=== PATIENT | male | born 1950 | race Caucasian/White ===

== ENCOUNTER 2023-08-17 07:51 | Outpatient (CLI) | payer MEDICARE | END 2023-08-17 07:52 | disposition home or self-care (01) | LOC: LAB.S 07:51 | PROVIDERS: ATTEND Family Medicine | DX: Z95.4 Presence of other heart-valve replacement (principal) | CPT/HCPCS: 36416; 85610 ==

== ENCOUNTER 2023-08-31 08:10 | Outpatient (CLI) | payer MEDICARE | END 2023-08-31 08:11 | disposition home or self-care (01) | LOC: LAB.S 08:10 | PROVIDERS: ATTEND Family Medicine | DX: Z95.4 Presence of other heart-valve replacement (principal) | CPT/HCPCS: 36416; 85610 ==

== ENCOUNTER 2023-09-07 07:32 | Outpatient (CLI) | payer MEDICARE | END 2023-09-07 07:33 | disposition home or self-care (01) | LOC: LAB.S 07:32 | PROVIDERS: ATTEND Family Medicine | DX: Z95.4 Presence of other heart-valve replacement (principal) | CPT/HCPCS: 36416; 85610 ==

== ENCOUNTER 2023-09-15 08:00 | Outpatient (CLI) | payer MEDICARE | END 2023-09-15 08:01 | disposition home or self-care (01) | LOC: LAB.S 08:00 | PROVIDERS: ATTEND Family Medicine | DX: Z95.4 Presence of other heart-valve replacement (principal) | CPT/HCPCS: 36416; 85610 ==

== ENCOUNTER 2023-09-18 11:48 | Outpatient (CLI) | payer MEDICARE | END 2023-09-18 11:49 | disposition home or self-care (01) | LOC: LAB.S 11:48 | PROVIDERS: ATTEND Family Medicine | DX: Z95.4 Presence of other heart-valve replacement (principal) | CPT/HCPCS: 36416; 85610 ==

== ENCOUNTER 2023-09-25 08:12 | Outpatient (CLI) | payer MEDICARE | END 2023-09-25 08:13 | disposition home or self-care (01) | LOC: LAB.S 08:12 | PROVIDERS: ATTEND Family Medicine | DX: Z95.4 Presence of other heart-valve replacement (principal) | CPT/HCPCS: 36416; 85610 ==

== ENCOUNTER 2023-10-05 11:40 | Outpatient (CLI) | payer MEDICARE | END 2023-10-05 11:41 | disposition home or self-care (01) | LOC: LAB.S 11:40 | PROVIDERS: ATTEND Family Medicine | DX: Z95.4 Presence of other heart-valve replacement (principal) | CPT/HCPCS: 36416; 85610 ==

== ENCOUNTER 2023-10-09 08:06 | Outpatient (CLI) | payer MEDICARE | END 2023-10-09 08:07 | disposition home or self-care (01) | LOC: LAB.S 08:06 | PROVIDERS: ATTEND Family Medicine | DX: Z95.4 Presence of other heart-valve replacement (principal) | CPT/HCPCS: 36416; 85610 ==

== ENCOUNTER 2023-10-12 07:09 | Outpatient (CLI) | payer MEDICARE | END 2023-10-12 07:10 | disposition home or self-care (01) | LOC: LAB.S 07:09 | PROVIDERS: ATTEND Family Medicine | DX: Z95.4 Presence of other heart-valve replacement (principal) | CPT/HCPCS: 36416; 85610 ==

== ENCOUNTER 2023-10-16 07:19 | Outpatient (CLI) | payer MEDICARE | END 2023-10-16 07:20 | disposition home or self-care (01) | LOC: LAB.S 07:19 | PROVIDERS: ATTEND Family Medicine | DX: Z95.4 Presence of other heart-valve replacement (principal) | CPT/HCPCS: 36416; 85610 ==

== ENCOUNTER 2023-10-28 08:26 | Outpatient (CLI) | payer MEDICARE | END 2023-10-28 08:27 | disposition home or self-care (01) | LOC: LAB.S 08:26 | PROVIDERS: ATTEND Family Medicine | DX: Z95.4 Presence of other heart-valve replacement (principal) | CPT/HCPCS: 36416; 85610 ==

== ENCOUNTER 2023-11-06 08:20 | Outpatient (CLI) | payer MEDICARE | END 2023-11-06 08:21 | disposition home or self-care (01) | LOC: LAB.S 08:20 | PROVIDERS: ATTEND Family Medicine | DX: Z95.4 Presence of other heart-valve replacement (principal) | CPT/HCPCS: 36416; 85610 ==

== ENCOUNTER 2023-11-10 08:46 | Outpatient (CLI) | payer MEDICARE | END 2023-11-10 08:47 | disposition home or self-care (01) | LOC: LAB.S 08:46 | PROVIDERS: ATTEND Family Medicine | DX: Z95.4 Presence of other heart-valve replacement (principal) | CPT/HCPCS: 36416; 85610 ==